=== PATIENT | female | born 1980 | race Caucasian/White ===

== ENCOUNTER → 2020-02-21 | Outpatient (CLI) | payer BC ==
[~2020-02-21] MED LIST: APRI1 EACH PO; Hair, Skin & N1 EACH PO; IBUP800 PO; LABE100 PO; OXYACE5T PO; Verotin-Gr Cap1 EACH PO
[2020-02-25 07:07] LABS: HPV 16 Negative (Negative); HPV 18 Negative (Negative); HPV OTHER HR TYPES Negative (Negative)
== END | disposition home or self-care (01) ==
LOC: LAB 10:52 → LAB SHORT 10:52
PROVIDERS: Advanced Practice Midwife
DX: Z01.419 Encounter for gynecological examination (general) (routine) without abnormal findings (principal)
CPT/HCPCS: 87624; G0123

== ENCOUNTER 2020-12-22 05:57 | Inpatient (IN) | payer BC ==
[~2020-12-22] VITALS: Ht 160 cm; Wt 143.0 kg
[~2020-12-22 05:57] MED LIST changes: +ASPIR 8181 M1 PO; +PRENATAL TABLE1 EAC2 PO
[2020-12-22 06:20] LABS: BASOPHILS ABSOLUTE AUTO 0.02 K/mm3 (0.00-0.23); BASOPHILS PERCENT AUTO 0 % (0-2); EOSINOPHILS ABSOLUTE AUTO 0.08 K/mm3 (0.00-0.68); EOSINOPHILS PERCENT AUTO 1 % (0-6); Hematocrit 33.4 % (33.0-51.0); Hemoglobin 11.2 g/dL (11.5-16.0); IMMATURE GRAN ABSOLUTE AUTO 0.03 K/mm3 (0.00-0.10); IMMATURE GRAN PERCENT AUTO 0 % (0-1); LYMPHOCYTES ABSOLUTE AUTO 1.56 K/mm3 (0.84-5.20); LYMPHOCYTES PERCENT AUTO 23 % (21-46); MONOCYTES ABSOLUTE AUTO 0.55 K/mm3 (0.16-1.47); MONOCYTES PERCENT AUTO 8 % (4-13); Mean Corpuscular HGB 31.2 pg (26.0-34.0); Mean Corpuscular HGB Conc 33.5 g/dL (31.5-36.5); Mean Corpuscular Volume 93 fL (80-100); Mean Platelet Volume 11.4 fL (9.1-12.4); NEUTROPHILS ABSOLUTE AUTO 4.65 K/mm3 (1.96-9.15); NEUTROPHILS PERCENT AUTO 68 % (41-73); Platelet Count 188 K/mm3 (150-400); RDW Coefficient Variation 13.3 % (11.7-14.2); RDW Standard Deviation 45.2 fL (35.1-46.3); Red Blood Cell Count 3.59 M/mm3 (3.80-5.20); White Blood Cell Count 6.89 K/mm3 (4.00-11.30)
[2020-12-22 08:27] LABS: PO2 Cord - Arterial 19.6 mmHg (16-20); pH Cord - Arterial 7.24 (7.28-7.35)
[2020-12-22 08:30] LABS: PCO2 Cord - Venous 46.8 mmHg (40-50); PO2 Cord - Venous 27.4 mmHg (28-32); pH Umbilical Cord - Venous 7.33 (7.26-7.35)
--- NOTE | 2020-12-22 08:34 | NUR ---
12/22/20 0834 Henrietta Cortsé [id number] DELIVERY VIABLE FEMALE INFANT, NB TAKEN TO SCN FOR RESPIRATORY ASSISTANCE, UMBILCAL CORD SEGEMENT SENT WITH RT FOR CORD GASES, UMBILICAL CORD BLOOD COLLECTED GIVEN TO A DEBORA RN, RIGHT AND LEFT FALLOPIAN TUBES SENT TO PATHOLOGY
--- NOTE | 2020-12-22 11:10 | NUR ---
1110 REPT TO Parisa CAZARES RN
--- NOTE | 2020-12-22 12:17 | NUR ---
REPORT RECEIVED FROM JOMAR MUSA. ASSUMED CARE OF PT.
--- NOTE | 2020-12-22 18:03 | NUR ---
RN CALLED INTO ROOM STATING SHE WAS FEELING "OFF". PT DESCRIBED THAT SHE WAS FEELING CHILLED AND HOT AND JUST NOT FEELING WELL. UPON ASSESSMENT AND VITAL SIGNS PT WAS FOUND TO BE HYPOTENSIVE OF 112/52, HR 61, TEMP 96.8. WILL CONTINUE TO MONITOR.
--- NOTE | 2020-12-22 18:16 | NUR ---
DR. DAVIDSON CALLED AND NOTIFIED OF HYPOTENSION AND ASSESSMENT. RECEIVED TELEPHONE ORDER FOR PO LABETALOL PARAMETERS TO HOLD 100 MG PO IF SYSTOLIC IF <130 OR IF DIASTOLIC <60. NO OTHER ORDERS AT THIS TIME.
--- NOTE | 2020-12-22 18:20 | NUR ---
LATE NOTE ENTRY DISCHARGE INSTRUCTIONS, WRITTEN AND VERBAL, GIVEN TO PT AND Sultana GARRISON. ANSWERED ALL QUESTIONS AND CONCERNS. IV DISCONTINUED. FOLLOW UP APPOINTMENT SCHEDULED. ALL PERSONAL BELONGINGS RETURNED. PT IS DISCHARGED HOME, DRIVEN BY Sultana GARRISON AT 1740.
[2020-12-23 05:16] LABS: Hematocrit 22.9 % (33.0-51.0); Hemoglobin 7.5 g/dL (11.5-16.0); Mean Corpuscular HGB 30.9 pg (26.0-34.0); Mean Corpuscular HGB Conc 32.8 g/dL (31.5-36.5); Mean Corpuscular Volume 94 fL (80-100); Platelet Count 170 K/mm3 (150-400); RDW Coefficient Variation 13.6 % (11.7-14.2); RDW Standard Deviation 46.3 fL (35.1-46.3); Red Blood Cell Count 2.43 M/mm3 (3.80-5.20)
--- NOTE | 2020-12-23 06:47 | NUR ---
PT C/O FEELING LIGHTHEADED WHEN GETTING OUT OF BED AT 0400 TODAY; IS A/OX4 WITH VSS. PT ABLE TO SIT IN CHAIR FOR APPROX ONE HOUR, WHICH REDUCED SHOULDER/GAS PAIN. PATTERSON CATH REMOVED PRIOR TO GETTING OUT OF BED, 1000ML OF CLEAR YELLOW URINE OUT THIS SHIFT. ABLE TO AMBULATE TO TOILET WITH SBA, UNABLE TO VOID AT THIS TIME. PT CURRENTLY RESTING IN BED WITH CALL LIGHT IN REACH.
--- NOTE | 2020-12-23 08:46 | NUR ---
PT REMAINS UP IN CHAIR. DESIRES TO STAY OOB. VAMSI WELL. 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 VAMSI WELL.
--- NOTE | 2020-12-23 08:47 | NUR ---
PT REPORTS NO PAIN WHEN SITTING UP IN CHAIR OR RESTING IN BED. REPORTS PAIN 5/10 WITH MOVEMENT, VAMSI WELL
--- NOTE | 2020-12-23 09:31 | NUR ---
PT REQUEST TO SHOWER, VAMSI WELL,
--- NOTE | 2020-12-23 09:50 | NUR ---
PT DESIRES TO BE UP OOB TO CHAIR, ROXICODONE GIVEN FOR PAIN. PT VAMSI WELL.
--- NOTE | 2020-12-23 10:24 | NUR ---
PT REMAINS UP IN CHAIR. OUT OF ROOM TO GO HOME AND RUN ERRANDS. PT STATES SHE FEELS COMFORTABLE UP OOB ON HER OWN. PHONE AND CALL LIGHT NEAR PT. PT TO CALL WITH ANY ASSITANCE FOR HERSELF OR NB
--- NOTE | 2020-12-24 05:42 | NUR ---
PT DENIES FEELING DIZZY OR LIGHTHEADED T/O NIGHT. REPORTS PAIN MANAGED WITH PO MEDICATION AND REPOSITIONING. BLEEDING MIN WITH JULISSA PAD IN PLACE. SPOUSE ATTENTIVE AT BEDSIDE. VSS. PT CURRENTLY RESTING IN BED WITH NB AT NURSES STATION. WILL CONT TO MONITOR AND GIVE REPORT TO ONCOMING RN
[2020-12-24] MEDS ORDERED: Percocet 5-3251 EACH (09:53)
--- NOTE | 2020-12-24 11:07 | NUR ---
DISCHARGE INSTRUCTIONS REVIEWED AND SIGNED. QUESTIONS ANSWERED. CHARISSE [place]. DISCHARGED TO HOME WITH INFANT.
== END 2020-12-24 11:20 | disposition home or self-care (01) | DRG 784 ==
LOC: BC 05:57
PROVIDERS: ADMIT Obstetrics & Gynecology
PROC: 10D00Z1 Extraction of Products of Conception, Low, Open Approach (ICD-10-PCS; principal; 2020-12-22 07:30)
PROC: 0UT70ZZ Resection of Bilateral Fallopian Tubes, Open Approach (ICD-10-PCS; 2020-12-22 07:30)
DX: O34.211 Maternal care for low transverse scar from previous cesarean delivery (principal); O10.92 Unspecified pre-existing hypertension complicating childbirth; D62 Acute posthemorrhagic anemia; O90.81 Anemia of the puerperium; O69.81X0 Labor and delivery complicated by cord around neck, without compression, not applicable or unspecified; O99.214 Obesity complicating childbirth; E66.9 Obesity, unspecified; Z3A.38 38 weeks gestation of pregnancy; Z37.0 Single live birth; Z30.2 Encounter for sterilization
CPT/HCPCS: 36415; 82803; 85025; 85027; 86850; 86900; 86901; 88302; A9270; J0690; J1885; J2370; J2405; J2590; J2765; J3010; J7120

== ENCOUNTER → 2025-03-14 | Outpatient (CLI) | payer BC ==
[~2025-03-14] MED LIST changes: +Percocet 5-3251 EACH
== END | disposition home or self-care (01) ==
LOC: LAB SHORT 15:05 → LAB 15:05
PROVIDERS: Family Medicine
DX: Z01.419 Encounter for gynecological examination (general) (routine) without abnormal findings (principal)
CPT/HCPCS: 87624; G0123